=== PATIENT | male | born 2000 | race Caucasian/White ===

== ENCOUNTER 2022-02-05 18:26 | Emergency (ER) | payer OTHER, SELFPAY ==
[2022-02-05 18:40] VITALS: BP 126/74; PULSE 67; RESP 19; TEMP 36.6; O2SAT 98; BMI 31.7
--- NOTE | 2022-02-05 19:05 | HMH.EDUTC ---
[facility] [place]: Lac[place] Disposition: Home, Self-Care Condition on Discharge: Good Instructions: DI for Laceration Repair-Skin Glue Additional Instructions: Do not peel off glue allow to wear off Do not soak hands in water it will cause glue to come off too earlier Watch for signs of infection such as redness, drainage etc if seen follow up with your family doctor immediately Return if needed Referrals: Provider,Referral, MD [Primary Care Provider] - As needed Time of Disposition: 19:29 Medical Decision Making - Gunnar Inquiry Pt receiving controlled substance: No Gunnar was queried for this patient: No Vital Signs: 02/05/22 18:40 Temperature 97.8 F Temperature Source Oral Pulse Rate [Right Brachial] 67 Respiratory Rate 19 Blood Pressure [Right Arm] 126/74 Blood Pressure Mean [Right Arm] 91 Blood Pressure Source [Right Arm] Automatic Cuff Blood Pressure Position [Right Arm] Sitting 02 Sat by Pulse Oximetry 98 Oxygen Delivery Method Room Air Orders (Tests/Meds): ED MEDICATIONS Discontinued Medications Generic Name Dose Route Start Last Admin Trade Name Gerson PRN Reason Stop Dose Admin Tetanus/Reduced Diphtheria/Acell Pertussis 0.5 ml 02/05/22 18:58 Tet/Diphth/Pert-Adult 0.5ml Syringe IM 02/05/22 18:59 .[place] [facility] [place] - General Stated complaint: AO 02/05!@1730 Lac to Left index finger Time Seen by Provider: 02/05/22 19:05 Mode of Arrival: Ambulatory Source of Information: Patient Limitations: No Limitations Description of Symptoms (Recalled from Triage Doc. by RN): PATIENT C/O LACERATION TO LEFT INDEX FINGER AFTER CUTTING IT WITH A BREAD KNIFE AT WORK TODAY HEENT Symptoms (Recalled from RN notes): No Resp Symptoms (Recalled from RN notes): No Skin Symptoms (Recalled from RN notes): Yes MS Symptoms (Recalled from RN notes): No Functional Status (Recalled from RN notes): WNL - History of Present Illness Provider Complaint: Patient states that he was at work earlier cutting up some chicken and the knife slipped and cut him on the tip of his left index finger States that he immediately applied pressure and the bleeding was controlled but he wasnt sure when his last tetanus was and if he may need stiches or not - Related Data Allergies Allergy/AdvReac Type Severity Reaction Status Date / Time No Known Allergies Allergy Verified 02/05/22 18:56 - Worker's Comp Is this a Worker's Comp case?: No [facility] History - Hepatitis A Screen Attestation statement:: This patient has been screened for Hepatitis A risk factors. I have reviewed the patient's past medical history: Yes ROS Obtained: Yes All systems reviewed & no additional complaints, Yes Systems reviewed as appropriate & no additional complaints - Constitutional Constitutional: Reports system reviewed and no additional complaints, except as docu, Denies body ache, Denies chills, Denies fever(s) - ENT Ears, Nose, Mouth, and Throat: Reports system reviewed and no additional complaints, except as docu - Cardiovascular Cardiovascular: Reports system reviewed and no additional complaints, except as docu - Respiratory Respiratory: Reports system reviewed and no additional complaints, except as docu - Gastrointestinal Gastrointestingal: Reports: system reviewed and no additional complaints, except as docu - Musculoskeletal Musculoskeletal: Reports system reviewed and no additional complaints, except as docu - Integumentary/Breasts Skin/Breast: Reports other (laceration to tip of left index finger pad) Physical Exam - General General appearance: alert, in no apparent distress - Respiratory Respiratory exam: Present: normal lung sounds bilaterally. Absent: respiratory distress - Cardiovascular Cardiovascular exam: Present: regular rate, normal rhythm. Absent: JVD - Expanded Upper Extremity Exam Left Hand exam: Present: laceration Hand L/R front image:
[2022-02-05 19:18] VITALS: BP 126/74; PULSE 67; RESP 19; TEMP 36.6; O2SAT 98
== END 2022-02-05 19:38 | disposition home or self-care (01) ==
PROVIDERS: Emergency Provider Nurse Practitioner
DX: S61.211A Laceration without foreign body of left index finger without damage to nail, initial encounter (principal); W26.0XXA Contact with knife, initial encounter; Y92.69 Other specified industrial and construction area as the place of occurrence of the external cause
CPT/HCPCS: 12001; 90471; 90715; 99213; G0463

== ENCOUNTER → 2023-01-03 16:27 | Outpatient (CLI) | payer OTHER, SELFPAY ==
[2023-01-06 08:09] LABS: Neisseria gonorrhoeae, NAA Negative (Negative)
== END ==
PROVIDERS: Visit Provider Nurse Practitioner Family
DX: R30.0 Dysuria (principal)
CPT/HCPCS: 87086; 87491; 87591

== ENCOUNTER 2024-10-30 07:31 | Outpatient (CLI) | payer OTHER, SELFPAY ==
[2024-10-30 17:01] LABS: Basophils % 0.5 % (0.1-2.0); Eosinophils # 0.4 Kmm3 (0.0-0.4); Eosinophils % 5.1 % (0.1-12.0); Hemoglobin 16.4 g/dL (14.1-18.0); Lymphocytes # 1.9 K/mm3 (0.7-4.5); Lymphocytes % 22.7 % (10-50); Mean Corpuscular HGB Conc 32.8 g/dL (31.8-35.4); Mean Corpuscular Hemoglobin 28.2 pg (27.0-31.2); Mean Corpuscular Volume 86.1 fl (80-94); Mean Platelet Volume 11.2 fl (7.4-10.4); Monocytes # 0.8 K/mm3 (0.1-1.0); Monocytes % 10.2 % (1.7-9.3); Neutrophils % 61.3 % (37.0-80.0); Nucleated Red Blood Cells # 0 10^3/uL; Nucleated Red Blood Cells % 0 %; Platelet Count 276 K/mm3 (142-424); Red Blood Count 5.81 M/mm3 (4.60-6.20); Red Cell Distribution Width 12.9 % (11.5-17.5); Red Cell Distribution Width-SD 39.8 fL; White Blood Count 8.2 K/mm3 (4.8-10.8)
[2024-10-30 17:43] LABS: Alanine Aminotransferase 19 U/L (12-78); Albumin Level 4.3 g/dl (3.5-5.0); Albumin/Globulin Ratio 1.8 (1.1-1.8); Alkaline Phosphatase 79 U/L (38-126); Aspartate Amino Transferase 28 U/L (17-59); Bilirubin,Total 0.7 mg/dl (0.2-1.3); Blood Urea Nitrogen 18 mg/dl (9-20); Calcium 9.5 mg/dl (8.4-10.2); Carbon Dioxide 28 mmol/L (22.0-30.0); Chloride 108 mmol/L (98-107); Chol/HDL Ratio 4.6 (1-3.5); Cholesterol 194 mg/dl (140-200); Estimated Glomerular Filt Rate 92 ml/min (>60); GFR (African American) 111 ML/MIN (>60); Globulin 2.4 g/dL (1.3-3.2); Glucose 75 mg/dl (74-100); HDL Cholesterol 42 mg/dl (40-60); Sodium 142 mmol/L (136-145); Total Protein,Serum 6.7 g/dl (6.3-8.2); Triglycerides 257 mg/dl (30-150); VLDL Cholesterol 51 mg/dL (0-40)
[2024-10-30 17:55] LABS: Direct LDL Cholesterol 98.32 mg/dL (100-129)
[2024-10-30 18:01] LABS: T4 (Thyroxine) 5.8 ug/dl (5.53-11.0); Triiodothryronine (T3) Uptake 35 % (23.5-40.5)
[2024-10-30 18:06] LABS: Anion Gap 10.6 mEq/L (5-15); Potassium 4.6 mmoL/L (3.5-5.1)
[2024-10-30 18:14] LABS: Thyroid Stimulating Hormone 2.98 uIU/mL (0.465-4.68)
[2024-10-30 18:24] LABS: HIV Combo NEGATIVE (Negative)
[2024-10-30 18:32] LABS: 25-OH Vitamin D, Total 26.2 ng/mL (30-100); Hepatitis C Ab Qual. W/ RFX NEGATIVE (Negative)
[2024-10-30 18:34] LABS: Vitamin B12 530 pg/mL (239-931)
[2024-10-30 18:37] LABS: Hemoglobin A1C 5.1 % (4.0-6.0)
== END 2024-10-30 23:59 | disposition home or self-care (01) ==
LOC: LAB.DROPOF 10-31 07:31
PROVIDERS: PCP Nurse Practitioner Family; Visit Provider Nurse Practitioner Family
DX: R53.83 Other fatigue (principal); Z11.59 Encounter for screening for other viral diseases
CPT/HCPCS: 80053; 80061; 82306; 82607; 83036; 84436; 84443; 84479; 85025; 86803; 87389